=== PATIENT | female | born 1975 | race Caucasian/White ===

== ENCOUNTER 2017-05-02 12:26 | Emergency (ER) | payer MEDICARE ==
[~2017-05-02] VITALS: Ht 160 cm; Wt 49.0 kg
[2017-05-02] MEDS ORDERED: RISPERDAL 0.50.5 MG NG (12:42)
[2017-05-02] MEDS ORDERED: ZANAFLEX4 M3 PO (12:42)
[2017-05-02] MEDS ORDERED: TRAZODONE 50MG50 MG PO (12:43)
[2017-05-02] MEDS ORDERED: SYNTHROID0.112 MG PO (12:44)
[2017-05-02] MEDS ORDERED: WELLBUTRIN SR100 MG PO (12:44)
--- OUTSIDE RECORDS SUMMARY | 2017-05-02 12:44 | External Medical Summary Rpt | CCD ---
Author Author BETO Address Unknown Phone Purpose Continuity of Care Document - 09-12-2011 through 2016
--- OUTSIDE RECORDS SUMMARY | 2017-05-02 12:44 | External Medical Summary Rpt | CCD ---
Author Author BETO Address Unknown Phone [email or web address] Purpose Continuity of Care Document - 09-12-2011 through 2016
--- OUTSIDE RECORDS SUMMARY | 2017-05-02 12:45 | External Medical Summary Rpt | CCD ---
Demographics Preferred Language Czech Marital Status Unknown Sikh Affiliation Unknown Race Unknown Ethnic Group Unknown Author Author , BETO PÉREZ Address Unknown Phone Immunization No patient found.
--- OUTSIDE RECORDS SUMMARY | 2017-05-02 12:45 | External Medical Summary Rpt | CCD ---
Author Author [facility] Organization [facility] Address Unknown Phone Unavailable Purpose Continuity of Care Document - through 2016
--- OUTSIDE RECORDS SUMMARY | 2017-05-02 12:45 | External Medical Summary Rpt | CCD ---
Demographics Preferred Language Vietnamese Marital Status Unknown Bahai Affiliation Unknown Race Unknown Ethnic Group Unknown Author Author , BETO PÉREZ Address Unknown Phone Immunization No patient found.
--- OUTSIDE RECORDS SUMMARY | 2017-05-02 12:46 | External Medical Summary Rpt ---
Author Author [employer], [employer] Organization [employer] Address Unknown Phone Unavailable Results ETHANOL Observa Value Referen Units Interpr Notes Date tion ce etation Range SERUM No No No No Jan 30 informa informa informa informa 2013 tion in tion in tion in tion in 4:43 PM source source source source data data data data ETHANOL <10 0 - 10 mg/dL No This Jan 30 QUANT informa test is 2013 tion in for 4:43 PM source clinica data l use only COLLECT R. No No No No Jan 30 ED BY ENRIQUE informa informa informa informa 2013 tion in tion in tion in tion in 4:43 PM source source source source data data data data TECH ID TIGREIGH No No No No Jan 30 T informa informa informa informa 2013 tion in tion in tion in tion in 4:43 PM source source source source data data data data BASIC METABOLIC PROFILE Observa Value Referen Units Interpr Notes Date tion ce etation Range PLASMA No No No No Jan 30 informa informa informa informa 2013 tion in tion in tion in tion in 4:43 PM source source source source data data data data SODIUM 141 137 - mmol/L No No Jan 30 145 informa informa 2012 tion in tion in 4:43 PM source source data data POTASSI 4.1 3.5 - mmol/L No No Jan 30 UM 5.1 informa informa 2012 tion in tion in 4:43 PM source source data data CHLORID 104 100 - mmol/L No No Jan 30 E 108 informa informa 2013 tion in tion in 4:43 PM source source data data CO2 22 22 - 30 mmol/L No No Jan 10 TOTAL informa informa 2013 tion in tion in 4:43 PM source source data data GLUCOSE 86 65 - mg/dL No No Jan 10 110 informa informa 2013 tion in tion in 4:43 PM source source data data BUN 9 7 - 20 mg/dL No No Jan 30 informa informa 2012 tion in tion in 4:43 PM source source data data CREATIN 0.79 0.50 - mg/dL No No Jan 30 INE 1.20 informa informa 2012 tion in tion in 4:43 PM source source data data CALCIUM 9.0 8.4 - mg/dL No No Jan 30 10.2 informa informa 2012 tion in tion in 4:43 PM source source data data ANION 15 7 - 15 mmol/L No No Jan 10 GAP informa informa 2013 tion in tion in 4:43 PM source source data data GFR >90 No mL/min No This Jan 30 ESTIMAT informa informa eGFR is 2013 ED tion in tion in NOT 4:43 PM source source FOR data data DRUG DOSE ADJUSTM ENTStag e of Kidney Disease eGFR1 >=90 mL/min2 60-893 30-594 15-295 <=14The Estimat ed Glomeru lar Filtrat ion Ratebas ed on CKD-EPI adjuste d for age, sex,and race is validat ed for ages 18-70 years. CBC W/O DIFFERENTIAL Observa Value Referen Units Interpr Notes Date tion ce etation Range WHOLEBL No No No No Jan 30 D informa informa informa informa 2012 tion in tion in tion in tion in 4:43 PM source source source source data data data data WBC 8.6 4.10 - Thou/mm No No Jan 30 10.80 3 informa informa 2012 tion in tion in 4:43 PM source source data data RBC 4.34 3.77 - Million No No Jan 30 5.16 /mm3 informa informa 2012 tion in tion in 4:43 PM source source data data HGB 14.2 11.2 - gm/dL No No Jan 30 15.7 informa informa 2012 tion in tion in 4:43 PM source source data data HCT 40.5 34.1 - % No No Jan 30 44.9 informa informa 2012 tion in tion in 4:43 PM source source data data MCV 93.3 79.4 - fl No No Jan 30 94.8 informa informa 2012 tion in tion in 4:43 PM source source data data MCH 32.7 25.6 - PG No No Jan 30 32.2 informa informa 2013 tion in tion in 4:43 PM source source data data MCHC 35.1 32.2 - g/dL No No Jan 30 35.5 informa informa 2013 tion in tion in 4:43 PM source source data data RDW 12.2 11.7 - % No No Jan 30 15.2 informa informa 2013 tion in tion in 4:43 PM source source data data PLT 304 140 - Thou/mm No No Jan 30 370 3 informa informa 2013 tion in tion in 4:43 PM source source data data MPV 10.5 8.7 - fl No No Jan 30 12.0 informa informa 2013 tion in tion in 4:43 PM source source data data HCG, URINE QUALITATIVE Observa Value Referen Units Interpr Notes Date tion ce etation Range URINE No No No No Jan 30 informa informa informa informa 2013 tion in tion in tion in tion in 4:40 PM source source source source data data data data HCG UR NEGATIV NEGATIV No No No Jan 30 QUAL E E informa informa informa 2013 tion in tion in tion in 4:40 PM source source source data data data DRUG SCREEN URINE NIKKI Observa Value Referen Units Interpr Notes Date tion ce etation Range URINE No No No No Jan 30 informa informa informa informa 2013 tion in tion in tion in tion in 4:40 PM source source source source data data data data AMPHETA NEGATIV NEGATIV No No No Jan 30 MINES E E informa informa informa 2013 tion in tion in tion in 4:40 PM source source source data data data BARBITU NEGATIV NEGATIV No No No Jan 30 RATES E E informa informa informa 2013 tion in tion in tion in 4:40 PM source source source data data data COCAINE NEGATIV NEGATIV No No No Jan 30 METAB E E informa informa informa 2013 tion in tion in tion in 4:40 PM source source source data data data OPIATES NEGATIV NEGATIV No No No Jan 30 E E informa informa informa 2013 tion in tion in tion in 4:40 PM source source source data data data BENZODI NEGATIV NEGATIV No No No Jan 30 AZEPINE E E informa informa informa 2013 S tion in tion in tion in 4:40 PM source source source data data data OXYCODO NEGATIV NEGATIV No No No Jan 30 NE E E informa informa informa 2012 tion in tion in tion in 4:40 PM source source source data data data CANNABI NEGATIV NEGATIV No No No Jan 30 NOIDS E E informa informa informa 2012 tion in tion in tion in 4:40 PM source source source data data data METHADO NEGATIV NEGATIV No No * * * Jan 30 NE E E informa informa NIKKI 2012 tion in tion in DRUG 4:40 PM source source SCREEN data data TESTING * * SCREEN+ indicat es Presump tive Positiv e *Presum ptive Positiv e results are not confirm ed by GCMS.Th e submitt ed specime n was tested for the presenc e of the followi ngsubst ances at or above the indicat ed detecti on limit.A ll cutoffs are measure d in ng/ml:A mphetam genesis >500 Barbitu rates >200 Benzodi azepine s >100Can nabinoi ds >100 Cocaine >150 Opiates >300Oxy codone >100 Methado ne >300Res ults for clinica l use only. GC PCR Observa Value Referen Units Interpr Notes Date tion ce etation Range SWAB No No No No November 20 informa informa informa informa 2011 tion in tion in tion in tion in 9:30 PM source source source source data data data data NEISSER NOT NOT No No No November 20 IA DETECTE DETECTE informa informa informa 2011 GONORRH D D tion in tion in tion in 9:30 PM OEAE source source source DNA data data data CHLAMYDIA PCR Observa Value Referen Units Interpr Notes Date tion ce etation Range SWAB No No No No November 20 informa informa informa informa 2011 tion in tion in tion in tion in 9:30 PM source source source source data data data data C NOT NOT No No No November 20 TRACHOM DETECTE DETECTE informa informa informa 2011 ATIS D D tion in tion in tion in 9:30 PM DNA source source source data data data TERRENCE PREP Observa Value Referen Units Interpr Notes Date tion ce etation Range SWAB No No No No November 20 informa informa informa informa 2012 tion in tion in tion in tion in 9:30 PM source source source source data data data data TERRENCE NO No No No Normal: November 20 FUNGAL informa informa informa No 2012 ELEMENT tion in tion in tion in fungal 9:30 PM S SEEN source source source element data data data s seen WET PREP Observa Value Referen Units Interpr Notes Date tion ce etation Range SWAB No No No No November 20 informa informa informa informa 2012 tion in tion in tion in tion in 9:30 PM source source source source data data data data WET NO No No No No November 20 PREP TRICHOM informa informa informa informa 2012 ONAS tion in tion in tion in tion in 9:30 PM SEEN source source source source data data data data WET NO CLUE No No No No November 20 PREP CELLS informa informa informa informa 2012 SEEN tion in tion in tion in tion in 9:30 PM source source source source data data data data WET WBCS No No No Normal: November 20 PREP PRESENT informa informa informa 2012 tion in tion in tion in Negativ 9:30 PM source source source e for data data data Trichom onas, WBCs, and Clue Cells URINALYSIS Observa Value Referen Units Interpr Notes Date tion ce etation Range URINE No No No No November 20 informa informa informa informa 2012 tion in tion in tion in tion in 8:30 PM source source source source data data data data COLOR YELLOW YELLOW, No No No November 20 STRAW,A informa informa informa 2012 MBER,DK tion in tion in tion in 8:30 PM -YELLOW source source source data data data CLARITY CLEAR CLEAR No No No November 20 informa informa informa 2012 tion in tion in tion in 8:30 PM source source source data data data GLUCOSE NEGATIV NEGATIV mg/dL No No November 20 E E informa informa 2011 tion in tion in 8:30 PM source source data data BILIRUB NEGATIV NEGATIV No No No November 20 IN E E informa informa informa 2011 tion in tion in tion in 8:30 PM source source source data data data KETONES NEGATIV NEGATIV mg/dL No No November 20 E E informa informa 2011 tion in tion in 8:30 PM source source data data SP 1.011 1.002 - No No No November 20 GRAVITY 1.030 informa informa informa 2011 tion in tion in tion in 8:30 PM source source source data data data BLOOD NEGATIV NEGATIV No No In the November 20 E E informa informa total 2011 tion in tion in absence 8:30 PM source source of data data hemolys is, a negativ e result may occur and notagre e with the results of a urine sedimen t examina tion. PH 6.0 5.0 - No No No November 20 9.0 informa informa informa 2011 tion in tion in tion in 8:30 PM source source source data data data PROTEIN NEGATIV NEGATIV mg/dL No No November 20 E E informa informa 2011 tion in tion in 8:30 PM source source data data UROBILG <2.0 0.2 - mg/dL No No November 20 N 2.0 informa informa 2011 tion in tion in 8:30 PM source source data data NITRITE NEGATIV NEGATIV No No No November 20 E E informa informa informa 2011 tion in tion in tion in 8:30 PM source source source data data data SHANE TRACE NEGATIV No No No November 20 ESTERAS E informa informa informa 2011 E tion in tion in tion in 8:30 PM source source source data data data EPITH 0-4 0-4,NON /HPF No No November 20 E informa informa 2011 tion in tion in 8:30 PM source source data data WBC 0-4 NONE,0- /HPF No No November 20 4 informa informa 2011 tion in tion in 8:30 PM source source data data RBC 0-4 NONE,0- /HPF No No November 20 4 informa informa 2011 tion in tion in 8:30 PM source source data data MUCUS PRESENT No No No No November 20 informa informa informa informa 2012 tion in tion in tion in tion in 8:30 PM source source source source data data data data ETHANOL Observa Value Referen Units Interpr Notes Date tion ce etation Range SERUM No No No No November 12 informa informa informa informa 2012 tion in tion in tion in tion in 7:15 PM source source source source data data data data ETHANOL <10 0 - 10 mg/dL No No November 12 QUANT informa informa 2012 tion in tion in 7:15 PM source source data data COLLECT D No No No No November 12 ED BY MARISELA informa informa informa informa 2012 tion in tion in tion in tion in 7:15 PM source source source source data data data data TECH ID C MARISSA No No No No November 12 informa informa informa informa 2012 tion in tion in tion in tion in 7:15 PM source source source source data data data data HCG, URINE QUALITATIVE Observa Value Referen Units Interpr Notes Date tion ce etation Range URINE No No No No November 12 informa informa informa informa 2011 tion in tion in tion in tion in 7:15 PM source source source source data data data data HCG UR NEGATIV NEGATIV No No No November 12 QUAL E E informa informa informa 2011 tion in tion in tion in 7:15 PM source source source data data data COMP METAB PANEL Observa Value Referen Units Interpr Notes Date tion ce etation Range PLASMA No No No No November 12 informa informa informa informa 2011 tion in tion in tion in tion in 7:15 PM source source source source data data data data SODIUM 140 137 - mmol/L No No November 12 145 informa informa 2011 tion in tion in 7:15 PM source source data data POTASSI 3.3 3.5 - mmol/L No No November 12 UM 5.1 informa informa 2011 tion in tion in 7:15 PM source source data data CHLORID 102 100 - mmol/L No No November 12 E 108 informa informa 2011 tion in tion in 7:15 PM source source data data CO2 27 22 - 30 mmol/L No No November 12 TOTAL informa informa 2012 tion in tion in 7:15 PM source source data data GLUCOSE 69 65 - mg/dL No No November 12 110 informa informa 2012 tion in tion in 7:15 PM source source data data BUN 13 7 - 20 mg/dL No No November 12 informa informa 2012 tion in tion in 7:15 PM source source data data CREATIN 0.6 0.5 - mg/dL No No November 12 INE 1.2 informa informa 2011 tion in tion in 7:15 PM source source data data CALCIUM 8.4 8.4 - mg/dL No No November 12 10.2 informa informa 2012 tion in tion in 7:15 PM source source data data ANION 12 7 - 15 mmol/L No No November 12 GAP informa informa 2011 tion in tion in 7:15 PM source source data data ALK 78 38 - U/L No No November 12 PHOS 126 informa informa 2011 tion in tion in 7:15 PM source source data data AST 24 10 - 40 U/L No No November 12 (SGOT) informa informa 2011 tion in tion in 7:15 PM source source data data ALT 7 10 - 50 U/L No No November 12 (SGPT) informa informa 2011 tion in tion in 7:15 PM source source data data TOT 0.5 0.2 - mg/dL No No November 12 BILIRUB 1.0 informa informa 2011 IN tion in tion in 7:15 PM source source data data TOTAL 7.2 6.3 - g/dL No November 12 PROTEIN 8.2 informa informa 2011 tion in tion in 7:15 PM source source data data ALBUMIN 4.4 3.5 - g/dL No No November 12 5.0 informa informa 2011 tion in tion in 7:15 PM source source data data GFR >90 No mL/min No This November 12 ESTIMAT informa informa eGFR is 2012 ED tion in tion in NOT 7:15 PM source source FOR data data DRUG DOSE ADJUSTM ENTStag e of Kidney Disease eGFR1 >=90 mL/min2 60-893 30-594 15-295 <=14The Estimat ed Glomeru lar Filtrat ion Ratebas ed on CKD-EPI adjuste d for age, sex,and race is validat ed for ages 18-70 years. DRUG SCREEN URINE NIKKI Observa Value Referen Units Interpr Notes Date tion ce etation Range URINE No No No No November 12 informa informa informa informa 2011 tion in tion in ti in ti in 7:15 PM source source source source data data data data AMPHETA NEGATIV NEGATIV No No No November 12 MINES E E informa informa informa 2011 ti in ti in ti in 7:15 PM source source source data data data BARBITU NEGATIV NEGATIV No No No November 12 RATES E E informa informa informa 2011 in ti in ti in 7:15 PM source source source data data data COCAINE NEGATIV NEGATIV No No No November 12 METAB E E informa informa informa 2011 in ti in ti in 7:15 PM source source source data data data OPIATES NEGATIV NEGATIV No No No November 12 E E informa informa informa 2011 in ti in ti in 7:15 PM source source source data data data BENZODI NEGATIV NEGATIV No No No November 12 AZEPINE E E informa informa informa 2011 S ti in in in 7:15 PM source source source data data data OXYCODO NEGATIV NEGATIV No No No November 12 NE E E informa informa informa 2011 in ti in ti in 7:15 PM source source source data data data METHADO NEGATIV NEGATIV No No No November 12 NE E E informa informa informa 2011 in ti in ti in 7:15 PM source source source data data data CANNABI NEGATIV NEGATIV No No * * * November 12 NOIDS E E informa informa NIKKI 2011 in ti in DRUG 7:15 PM source source SCREEN data data TESTING * * SCREEN+ indicat es Presump tive Positiv e *Presum ptive Positiv e results are not confirm ed by GCMS.Th e submitt ed specime n was tested for the presenc e of the followi ngsubst ances at or above the indicat ed detecti on limit.A ll cutoffs are measure d in ng/ml:A mphetam genesis >500 Barbitu rates >200 Benzodi azepine s >100Can nabinoi ds >100 Cocaine >150 Opiates >300Oxy codone >100 Methado ne >300Res ults for clinica l use only. CBC WITH DIFF Observa Value Referen Units Interpr Notes Date tion ce etation Range WHOLEBL No No No No November 12 D informa informa informa informa 2011 tion in tion in tion in tion in 7:15 PM source source source source data data data data WBC 9.3 4.10 - Thou/mm No No November 12 10.80 3 informa informa 2011 tion in tion in 7:15 PM source source data data RBC 3.89 3.77 - Million No No November 12 5.16 /mm3 informa informa 2011 tion in tion in 7:15 PM source source data data HGB 12.6 11.2 - gm/dL No No November 12 15.7 informa informa 2011 tion in tion in 7:15 PM source source data data HCT 36.5 34.1 - % No No November 12 44.9 informa informa 2011 tion in tion in 7:15 PM source source data data MCV 93.8 79.4 - fl No No November 12 94.8 informa informa 2011 tion in tion in 7:15 PM source source data data MCH 32.4 25.6 - PG No No November 12 32.2 informa informa 2011 tion in tion in 7:15 PM source source data data MCHC 34.5 32.2 - g/dL No No November 12 35.5 informa informa 2011 tion in tion in 7:15 PM source source data data RDW 12.9 11.7 - % No No November 12 15.2 informa informa 2011 tion in tion in 7:15 PM source source data data PLT 236 140 - Thou/mm No No November 12 370 3 informa informa 2011 tion in tion in 7:15 PM source source data data MPV 10.4 8.7 - fl No No November 12 12.0 informa informa 2011 tion in tion in 7:15 PM source source data data GRANULO 49.4 34.0 - % No No November 12 CYTE% 69.5 informa informa 2011 tion in tion in 7:15 PM source source data data LYMPH% 42.4 20.0 - % No No November 12 53.0 informa informa 2012 tion in tion in 7:15 PM source source data data MONOCYT 5.1 5.0 - % No No November 12 E% 12.5 informa informa 2011 tion in tion in 7:15 PM source source data data EOSINOP 2.4 0.7 - % No No November 12 HIL% 6.0 informa informa 2012 tion in tion in 7:15 PM source source data data BASOPHI 0.6 0.0 - % No No November 12 L% 2.0 informa informa 2011 tion in tion in 7:15 PM source source data data IMM 0.1 0.0 - % No No November 12 GRAN% 0.7 informa informa 2011 tion in tion in 7:15 PM source source data data ABS 4.6 1.70 - Thou/mm No No November 12 NEUTROP 6.00 3 informa informa 2011 HIL # tion in tion in 7:15 PM source source data data NRBCS 0.0 No No No No November 12 informa informa informa informa 2011 tion in tion in tion in tion in 7:15 PM source source source source data data data data COMP METAB PANEL Observa Value Referen Units Interpr Notes Date tion ce etation Range PLASMA No No No No October 21 informa informa informa informa 2011 tion in tion in tion in tion in 5:06 PM source source source source data data data data GFR >90 No mL/min No This October 21 ESTIMAT informa informa eGFR is 2012 ED tion in tion in NOT 5:06 PM source source FOR data data DRUG DOSE ADJUSTM ENTStag e of Kidney Disease eGFR1 >=90 mL/min2 60-893 30-594 15-295 <=14The Estimat ed Glomeru lar Filtrat ion Ratebas ed on CKD-EPI adjuste d for age, sex,and race is validat ed for ages 18-70 years. CBC WITH DIFF Observa Value Referen Units Interpr Notes Date tion ce etation Range WHOLEBL No No No No October 1 D informa informa informa informa 2011 tion in tion in tion in tion in 5:06 PM source source source source data data data data WBC 10.4 4.10 - Thou/mm No No October 21 10.80 3 informa informa 2012 tion in tion in 5:06 PM source source data data RBC 4.00 3.77 - Million No No October 21 5.16 /mm3 informa informa 2012 tion in tion in 5:06 PM source source data data HGB 12.5 11.2 - gm/dL No No October 21 15.7 informa informa 2012 tion in tion in 5:06 PM source source data data HCT 37.3 34.1 - % No No October 21 44.9 informa informa 2012 tion in tion in 5:06 PM source source data data MCV 93.3 79.4 - fl No No October 21 94.8 informa informa 2011 tion in tion in 5:06 PM source source data data MCH 31.3 25.6 - PG No No October 21 32.2 informa informa 2012 tion in tion in 5:06 PM source source data data MCHC 33.5 32.2 - g/dL No No October 21 35.5 informa informa 2012 tion in tion in 5:06 PM source source data data RDW 12.6 11.7 - % No No October 21 15.2 informa informa 2012 tion in tion in 5:06 PM source source data data PLT 284 140 - Thou/mm No No October 21 370 3 informa informa 2012 tion in tion in 5:06 PM source source data data MPV 10.4 8.7 - fl No No October 21 12.0 informa informa 2012 tion in tion in 5:06 PM source source data data GRANULO 64.3 34.0 - % No No October 21 CYTE% 69.5 informa informa 2012 tion in tion in 5:06 PM source source data data LYMPH% 31.1 20.0 - % No No October 21 53.0 informa informa 2012 tion in tion in 5:06 PM source source data data MONOCYT 2.8 5.0 - % No No October 21 E% 12.5 informa informa 2012 tion in tion in 5:06 PM source source data data EOSINOP 1.2 0.7 - % No No October 21 HIL% 6.0 informa informa 2012 tion in tion in 5:06 PM source source data data BASOPHI 0.4 0.0 - % No No October 21 L% 2.0 informa informa 2011 tion in tion in 5:06 PM source source data data IMM 0.2 0.0 - % No No October 21 GRAN% 0.7 informa informa 2012 tion in tion in 5:06 PM source source data data ABS 6.7 1.70 - Thou/mm No No October 21 NEUTROP 6.00 3 informa informa 2012 HIL # tion in tion in 5:06 PM source source data data NRBCS 0.0 No No No No October 21 informa informa informa informa 2012 tion in tion in tion in tion in 5:06 PM source source source source data data data data UA DIPSTK POC Observa Value Referen Units Interpr Notes Date tion ce etation Range URINE No No No No October 21 informa informa informa informa 2011 tion in tion in tion in tion in 4:42 PM source source source source data data data data SP 1.020 1.005 - No No No October 21 GRAVITY 1.030 informa informa informa 2011 tion in tion in tion in 4:42 PM source source source data data data PH 7.0 5.0 - No No No October 21 9.0 informa informa informa 2011 tion in tion in tion in 4:42 PM source source source data data data PROTEIN NEGATIV NEGATIV mg/dL No No October 21 E E informa informa 2011 tion in tion in 4:42 PM source source data data GLUCOSE NEGATIV NEGATIV mg/dL No No October 21 E E informa informa 2011 tion in tion in 4:42 PM source source data data KETONES NEGATIV NEGATIV mg/dL No No October 21 E E informa informa 2011 tion in tion in 4:42 PM source source data data BILIRUB NEGATIV NEGATIV No No No October 21 IN E E informa informa informa 2012 tion in tion in tion in 4:42 PM source source source data data data BLOOD NEGATIV NEGATIV No No No October 21 E E informa informa informa 2011 tion in tion in tion in 4:42 PM source source source data data data NITRITE NEGATIV NEGATIV No No No October 21 E E informa informa informa 2011 tion in tion in tion in 4:42 PM source source source data data data UROBILI 0.2 0.2 - mg/dL No No October 21 NGN 1.0 informa informa 2012 tion in tion in 4:42 PM source source data data SHANE NEGATIV NEGATIV No No No October 21 ESTERAS E E informa informa informa 2012 E tion in tion in tion in 4:42 PM source source source data data data [id number] [id number] No No No No October 21 informa informa informa informa 2012 tion in tion in tion in tion in 4:42 PM source source source source data data data data OPERATO [id number] No No No No October 21 R informa informa informa informa 2012 tion in tion in tion in tion in 4:42 PM source source source source data data data data URINALYSIS Observa Value Referen Units Interpr Notes Date tion ce etation Range URINE No No No No October 21 informa informa informa informa 2012 tion in tion in tion in tion in 4:27 PM source source source source data data data data COLOR YELLOW YELLOW, No No No October 21 CINDY,A informa informa informa 2012 MBER,DK tion in tion in tion in 4:27 PM -YELLOW source source source data data data CLARITY SL CLEAR No No No October 21 CLOUDY informa informa informa 2011 tion in tion in tion in 4:27 PM source source source data data data GLUCOSE NEGATIV NEGATIV mg/dL No No October 21 E E informa informa 2011 tion in tion in 4:27 PM source source data data BILIRUB NEGATIV NEGATIV No No No October 21 IN E E informa informa informa 2011 tion in tion in tion in 4:27 PM source source source data data data KETONES NEGATIV NEGATIV mg/dL No No October 21 E E informa informa 2011 tion in tion in 4:27 PM source source data data SP 1.012 1.002 - No No No October 21 GRAVITY 1.030 informa informa informa 2012 tion in tion in tion in 4:27 PM source source source data data data BLOOD NEGATIV NEGATIV No No No October 21 E E informa informa informa 2011 tion in tion in tion in 4:27 PM source source source data data data PH 7.0 5.0 - No No No October 21 9.0 informa informa informa 2011 tion in tion in tion in 4:27 PM source source source data data data PROTEIN NEGATIV NEGATIV mg/dL No No October 21 E E informa informa 2011 tion in tion in 4:27 PM source source data data UROBILG <2.0 0.2 - mg/dL No No October 21 N 2.0 informa informa 2011 tion in tion in 4:27 PM source source data data NITRITE NEGATIV NEGATIV No No No October 21 E E informa informa informa 2011 tion in tion in tion in 4:27 PM source source source data data data SHANE NEGATIV NEGATIV No No No October 21 ESTERAS E E informa informa informa 2011 E tion in tion in tion in 4:27 PM source source source data data data EPITH 5-9 0-4,NON /HPF No No October 21 E informa informa 2011 tion in tion in 4:27 PM source source data data WBC 0-4 NONE,0- /HPF No No October 21 4 informa informa 2011 tion in tion in 4:27 PM source source data data RBC 0-4 NONE,0- /HPF No No October 21 4 informa informa 2011 tion in tion in 4:27 PM source source data data BACTERI TRACE NEGATIV /HPF No No October 21 A E informa informa 2011 tion in tion in 4:27 PM source source data data UA DIPSTK POC Observa Value Referen Units Interpr Notes Date tion ce etation Range URINE No No No No Oct 18 informa informa informa informa 2011 tion in tion in tion in tion in 4:02 PM source source source source data data data data SP >=1.030 1.005 - No No No Oct 18 GRAVITY 0 1.030 informa informa informa 2011 tion in tion in tion in 4:02 PM source source source data data data PH 5.5 5.0 - No No No Oct 18 9.0 informa informa informa 2011 tion in tion in tion in 4:02 PM source source source data data data PROTEIN TRACE NEGATIV mg/dL No No Oct 18 E informa informa 2011 tion in tion in 4:02 PM source source data data GLUCOSE NEGATIV NEGATIV mg/dL No No Oct 18 E E informa informa 2011 tion in tion in 4:02 PM source source data data KETONES TRACE NEGATIV mg/dL No No Oct 18 E informa informa 2011 tion in tion in 4:02 PM source source data data BILIRUB NEGATIV NEGATIV No No No Oct 18 IN E E informa informa informa 2011 tion in tion in tion in 4:02 PM source source source data data data BLOOD NEGATIV NEGATIV No No No Oct 18 E E informa informa informa 2011 tion in tion in tion in 4:02 PM source source source data data data NITRITE NEGATIV NEGATIV No No No Oct 18 E E informa informa informa 2011 tion in tion in tion in 4:02 PM source source source data data data UROBILI 0.2 0.2 - mg/dL No No Oct 18 NGN 1.0 informa informa 2011 tion in tion in 4:02 PM source source data data SHANE NEGATIV NEGATIV No No No Oct 18 ESTERAS E E informa informa informa 2011 E tion in tion in tion in 4:02 PM source source source data data data DEVICE [id number] No No No No Oct 18 informa informa informa informa 2011 tion in tion in tion in tion in 4:02 PM source source source source data data data data OPERATO [id number] No No No No Oct 18 R informa informa informa informa 2011 tion in tion in tion in tion in 4:02 PM source source source source data data data data CHLAMYDIA PCR Observa Value Referen Units Interpr Notes Date tion ce etation Range SWAB No No No No Oct 18 informa informa informa informa 2011 tion in tion in tion in tion in 4:00 PM source source source source data data data data C NOT NOT No No No Oct 18 TRACHOM DETECTE DETECTE informa informa informa 2012 ATIS D D tion in tion in tion in 4:00 PM DNA source source source data data data GC PCR Observa Value Referen Units Interpr Notes Date tion ce etation Range SWAB No No No No Oct 18 informa informa informa informa 2012 tion in tion in tion in tion in 4:00 PM source source source source data data data data NEISSER NOT NOT No No No Oct 18 IA DETECTE DETECTE informa informa informa 2012 GONORRH D D tion in tion in tion in 4:00 PM OEAE source source source DNA data data data TERRENCE PREP Observa Value Referen Units Interpr Notes Date tion ce etation Range SWAB No No No No Oct 18 informa informa informa informa 2012 tion in tion in tion in tion in 4:00 PM source source source source data data data data TERRENCE NO No No No Normal: Oct 18 FUNGAL informa informa informa No 2012 ELEMENT tion in tion in tion in fungal 4:00 PM S SEEN source source source element data data data s seen URINALYSIS Observa Value Referen Units Interpr Notes Date tion ce etation Range URINE No No No No Oct 18 informa informa informa informa 2011 tion in tion in tion in tion in 3:57 PM source source source source data data data data COLOR YELLOW YELLOW, No No No Oct 18 STRAW,A informa informa informa 2012 MBER,DK tion in tion in tion in 3:57 PM -YELLOW source source source data data data CLARITY SL CLEAR No No No Oct 18 CLOUDY informa informa informa 2011 tion in tion in tion in 3:57 PM source source source data data data GLUCOSE NEGATIV NEGATIV mg/dL No No Oct 18 E E informa informa 2011 tion in tion in 3:57 PM source source data data BILIRUB NEGATIV NEGATIV No No No Oct 18 IN E E informa informa informa 2011 tion in tion in tion in 3:57 PM source source source data data data KETONES NEGATIV NEGATIV mg/dL No No Oct 18 E E informa informa 2011 tion in tion in 3:57 PM source source data data SP 1.021 1.002 - No No No Oct 18 GRAVITY 1.030 informa informa informa 2011 tion in tion in tion in 3:57 PM source source source data data data BLOOD NEGATIV NEGATIV No No No Oct 18 E E informa informa informa 2011 tion in tion in tion in 3:57 PM source source source data data data PH 5.5 5.0 - No No No Oct 18 9.0 informa informa informa 2011 tion in tion in tion in 3:57 PM source source source data data data PROTEIN TRACE NEGATIV mg/dL No No Oct 18 E informa informa 2011 tion in tion in 3:57 PM source source data data UROBILG 2.0 0.2 - mg/dL No No Oct 18 N 2.0 informa informa 2011 tion in tion in 3:57 PM source source data data NITRITE NEGATIV NEGATIV No No No Oct 18 E E informa informa informa 2011 tion in tion in tion in 3:57 PM source source source data data data SHANE NEGATIV NEGATIV No No No Oct 18 ESTERAS E E informa informa informa 2011 E tion in tion in tion in 3:57 PM source source source data data data EPITH 30-49 0-4,NON /HPF No No Oct 18 E informa informa 2011 tion in tion in 3:57 PM source source data data WBC 10-14 NONE,0- /HPF No No Oct 18 4 informa informa 2011 tion in tion in 3:57 PM source source data data RBC 0-4 NONE,0- /HPF No No Oct 18 4 informa informa 2011 tion in tion in 3:57 PM source source data data BACTERI TRACE NEGATIV /HPF No No Oct 18 A E informa informa 2011 tion in tion in 3:57 PM source source data data MUCUS PRESENT No No No No Oct 18 informa informa informa informa 2011 tion in tion in tion in tion in 3:57 PM source source source source data data data data DRUG SCREEN URINE NIKKI Observa Value Referen Units Interpr Notes Date tion ce etation Range URINE No No No No Sep 11 informa informa informa informa 2011 tion in tion in tion in tion in 6:35 PM source source source source data data data data AMPHETA SCREEN NEGATIV No No No Sep 11 MINES + E informa informa informa 2011 tion in tion in tion in 6:35 PM source source source data data data BARBITU NEGATIV NEGATIV No No No Sep 11 RATES E E informa informa informa 2011 tion in tion in tion in 6:35 PM source source source data data data COCAINE NEGATIV NEGATIV No No No Sep 11 METAB E E informa informa informa 2011 tion in tion in tion in 6:35 PM source source source data data data OPIATES NEGATIV NEGATIV No No No Sep 11 E E informa informa informa 2011 tion in ti in ti in 6:35 PM source source source data data data BENZODI NEGATIV NEGATIV No No No Sep 11 AZEPINE E E informa informa informa 2011 S tion in ti in ti in 6:35 PM source source source data data data OXYCODO NEGATIV NEGATIV No No No Sep 11 NE E E informa informa informa 2011 ti in ti in ti in 6:35 PM source source source data data data METHADO NEGATIV NEGATIV No No No Sep 11 NE E E informa informa informa 2011 ti in ti in ti in 6:35 PM source source source data data data CANNABI NEGATIV NEGATIV No No * * * Sep 11 NOIDS E E informa informa NIKKI 2011 in ti in DRUG 6:35 PM source source SCREEN data data TESTING * * SCREEN+ indicat es Presump tive Positiv e *Presum ptive Positiv e results are not confirm ed by GCMS.Th e submitt ed specime n was tested for the presenc e of the followi ngsubst ances at or above the indicat ed detecti on limit.A ll cutoffs are measure d in ng/ml:A mphetam genesis >500 Barbitu rates >200 Benzodi azepine s >100Can nabinoi ds >100 Cocaine >150 Opiates >300Oxy codone >100 Methado ne >300Res ults for clinica l use only. HCG, URINE QUALITATIVE Observa Value Referen Units Interpr Notes Date tion ce etation Range URINE No No No No Sep 11 informa informa informa informa 2011 tion in tion in tion in tion in 6:35 PM source source source source data data data data HCG UR NEGATIV NEGATIV No No No Sep 11 QUAL E E informa informa informa 2011 tion in tion in tion in 6:35 PM source source source data data data
--- OUTSIDE RECORDS SUMMARY | 2017-05-02 12:46 | External Medical Summary Rpt ---
[...] source data data data data TECH ID ITGREIGH No No No No Jan 30 T [...] source source source data data data DEVICE [id number] No No No No October 21 informa informa informa informa 2012 tion in tion in tion in tion in 4:42 PM source source source source data data data data OPERATO [id number] No No No No October 21 R [...] source source source data data data DEVICE [id number] No No No No Oct 18 informa informa informa informa 2011 tion in tion in tion in tion in 4:02 PM source source source source data data data data OPERATO [id number] No No No No Oct 18 R [...]
--- NOTE | 2017-05-02 13:36 | Emergency Room Report ---
History of Present Illness Time Seen by [id number] Presenting Problem in Triage Pt arrived:Walked Presenting Problem:PT C/O OF RIGHT SCIATIC PAIN FROM HIP TO FOOT. 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 N Clinical Suspician of Infection? N Mental Status: 1 - Regular (Normal Baseline) Sepsis Risk:Low Sepsis Risk Have you (or family members/close friends) recently traveled outside the [place]? N If Yes, where/when: Have you had exposure to infectious disease within the past month? N TB? Other? Specify: Source patient, RN notes reviewed Exam Limitations no limitations Comment Pt has been followed by Drea Marcum in [place] and being treated for Sciatica with Prednisone and Tizanidine and she has ordered an MRI but it has not yet been done. Pt also going to Physical therapy and alternating ice and heat. Cardiac Chest Pain Chest pain indicative of cardiac No ALLERGIES Coded Allergies: MILK (FOOD) (Mild, MAKES SICK 04/21/17) latex (05/02/17) morphine (05/02/17) Home Medications Reported Medications TIZANIDINE HCL (Zanaflex) 4 MG PO QHS Risperidone (Risperdal 0.5 Mg Tablet) 0.5 MG NG TID TRAZODONE HCL (Trazodone HCl) 50 MG PO QHS BUPROPION HCL SR (Wellbutrin SR 100MG) 75 MG PO QHS Levothyroxine Sodium (Synthroid 0.112MG) 0.112 MG PO DAILY History Medical History General CAD? No Angina: No IA: No Hypertension? No Hyperlipidemia? No CHF? No DVT? No PE? No COPD? No Asthma? No Anemia? No GERD? No Gastric ulcers? No GI Bleed? No Hernia? No Thyroid Problems? No Hypothyroidism? No CVA? No Seizures? No Diabetes? No Renal Insuffiency? No End Stage Renal Disease? No UTI? No Stones? No BPH? No GB Disease: No Nephritic Syndrome? No Asplenia? No Hepatitis? No Sickle Cell Disease? No Arthritis? No Migraines? No Cataracts? No Glaucoma? No MRSA? No HIV? No TB? No Anxiety? No Depression? Yes Cancer? Yes Site: THYROID More? 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 Cardiovascular normal exam, regular rate/rhythm Neurologic sciatica on right side but no trouble with BM's or UT and no saddle anesthesia Medical Decision Making LABS/Meds/Orders Pt receiving controlled substance in ED? No Departure Departure Time of Disposition 1346 Disposition DC Home or Self Care(routine) Clinical Impression Primary Impression: Sciatica, right side Condition STABLE Patient Instructions DI for Back Pain With Sciatica, DI for Sciatica, Sciatica, Sciatica (Alternative Therapy) Additional Instructions continue alternating ice and heat and start Diclofenac 50 mg BID along with her Tizanidine. Get MRI done ALICIA Discharge Counseling Counseled pt/family regarding diagnosis, test results, medications/RX, home care, follow up needs Prescriptions Current Visit Scripts DICLOFENAC SODIUM (Diclofenac 50MG) 50 MG PO BID #60 TAB ED Critical Care Critical Care No If Critical Care minutes are documented, the time involved in the performance of seperately reportable procedures was not counted toward critical care time documented. I directly delivered medical care to this critically ill and/or injured patient. Timely evaluation and treatment was necessary to address the significant organ system(s) dysfunction present in this patient. at 1349
[2017-05-02] MEDS ORDERED: DICLOFENAC 50MG50 MG PO (13:48)
[2017-05-02 13:58] VITALS: BP 110/78
== END 2017-05-02 13:59 | disposition home or self-care (01) ==
LOC: ER 12:26
DX: M54.41 Lumbago with sciatica, right side (principal)